=== PATIENT | female | born 1985 | race African-American/Black ===

== ENCOUNTER 2021-01-18 19:14 | Emergency (ER) | payer OTHER, MEDICAID ==
[~2021-01-18] VITALS: Ht 170.2 cm; Wt 104.3 kg
[~2021-01-18 19:14] MED LIST: BIRTH CONTROL; KEFLEX500 MG PO; PRENATAL; PRENATAL DHA+C1 EACH PO
[2021-01-18 20:28] VITALS: BP 153/93
== END 2021-01-18 20:29 | disposition home or self-care (01) ==
LOC: M.ERS 19:14
DX: J98.8 Other specified respiratory disorders (principal); Z20.822 Contact with and (suspected) exposure to COVID-19